=== PATIENT | male | born 2000 | race Caucasian/White ===

== ENCOUNTER 2021-02-23 19:03 | Emergency (ER) | payer OTHER ==
[~2021-02-23] VITALS: Ht 167.6 cm; Wt 84.1 kg
[2021-02-23 20:41] VITALS: TEMP 98.8
[2021-02-23] MEDS ORDERED: CLEOCIN HCL300 MG PO (21:39)
[2021-02-23 21:50] VITALS: BP 134/87; PULSE 95
== END 2021-02-23 21:50 | disposition home or self-care (01) ==
LOC: COL.ER 19:03
DX: L05.01 Pilonidal cyst with abscess (principal)

== ENCOUNTER 2021-02-27 00:38 | Emergency (ER) | payer OTHER ==
[~2021-02-27] VITALS: Ht 170.2 cm; Wt 86.4 kg
[~2021-02-27 00:38] MED LIST: CLEOCIN HCL300 MG PO
[2021-02-27 00:45] VITALS: TEMP 97.5
[2021-02-27 01:10] VITALS: BP 132/61; PULSE 68
== END 2021-02-27 01:10 | disposition home or self-care (01) ==
LOC: COL.ER 00:38
DX: L05.01 Pilonidal cyst with abscess (principal)